=== PATIENT | female | born 1980 | race Caucasian/White ===

== ENCOUNTER → 2016-03-03 | Outpatient (CLI) | payer OTHER ==
--- NOTE | 2016-03-03 18:06 | US ---
Dear Dr. Aguilar, Thank you for sending your patient, Varsha Schneider, to us for an US and consultation to assess fadumo kenneth. As you know, the patient is a 35 y.o. G2, P1001 at 21 weeks and 2 days with an EDC of 07/12/16 b ased on LMP and 8 week US. Her is complicated by AMA. Varsha has an unremarkable past medical and surgical history. She had a term in 2014 that was co mplicated by depression and bladder prolapse treated by pelvic PT. Genetic Screening: She has had reassuring NIPT and AFP results (46XX) this . The patient denies any uterine contractions, vaginal bleeding, or loss of fluid. Today, she is withou t complaints. US FINDINGS: Number of fetuses: 1 Placental location: Anterior, Low-lying 1.9 cm from internal os on transvaginal US Placental Cord Insertion: Central presentation: Cephalic Cervix: 3.3-3.5 cm without evidence of insufficiency on transvaginal US MVP: 4.9 cm The adnexa were evaluated. No pathology was seen. Right ovary: Normal Left ovary: Suboptimal heart rate: 135 bpm Measurements: Biparietal diameter: 50 mm, 21 weeks 1 days Head circumference: 193 mm, 21 weeks 4 days Abdominal circumference: 169 mm, 22 weeks 0 days Femur length: 34 mm, 20 weeks 6 days Humerus length: 35 mm, 22 weeks 0 days Transcerebellar diameter: 22 mm, 20 weeks 6 days Average ultrasound age: 21 weeks 3 days Estimated weight: 421 g weight percentile: 50% ANATOMY Supratentorial brain: Normal Cerebral lateral ventricle: 5 mm Posterior fossa: Normal Cisterna magna: 5 mm Nuchal fold: 4.5 mm Lip: Normal Profile: Normal Alveolar Ridge: Appears intact Spine: -- Cervical: Normal -- Thoracic: Normal -- Lumbar: Normal -- Sacral: Normal Heart: -- 4 Chamber: Normal -- Intraventricular septum: Suboptimal -- Right Outflow Tract: Normal -- Left Outflow Tract: Suboptimal -- 3 Vessel View: Normal -- Aortic Arch: Normal -- Ductal Arch: Normal Diaphragm: Appears intact Stomach: Normal Abdominal Umbilical Cord Insertion: Normal Right kidney: Renal pelvis 5.8 mm with early peripheral calyceal dilation Left kidney: Normal Bladder: Normal Number of cord vessels: 2, Single umbilical artery Upper extremities: -- Right Arm: Normal -- Right Hand: Normal -- Left Arm: Normal -- Left Hand: Normal Lower extremities: -- Right Leg: Normal -- Right Foot: Normal, no club foot -- Left Leg: Normal -- Left Foot: Normal, no club foot IMPRESSION: 1. Anatomy: The fetus measures appropriate for gestational age, measuring a normal weight and percen tile. Visualization of the fetus today reveals no overt structural anomalies. The LVOT and IVS were not well seen today due to position. There is evidence of normal amniotic fluid, and movement was seen during the examination. - US in 4 weeks to reassess cardiac views 2. Single Umbilical Artery: We discussed that this finding can be associated with aneuploidy, r enal and cardiac anomalies, and IUGR. Today, unilateral renal pelvis dilation and calyectasis was mansoor ntified as discussed below. While the LVOT and IVS were not optimally visualized, no gross cardiac an omalies were identified. Other than unilateral renal pelvis dilation, no other markers of aneup loidy were seen. The patient has had reassuring NIPT results this . We discussed the limitat ions of NIPT and the option of diagnostic invasive testing by amniocentesis. We reviewed that invasiv e testing is the only way to definitively exclude aneuploidy. After our discussion, the patient has declined amniocentesis at this time. - Growth US at 28-32 weeks 3. Dilated Right Renal Pelvis: The right renal pelvis is dilated to 5.8 mm with early peripheral jeny ceal dilation. The renal parenchyma, ureter, left kidney, bladder, and amniotic fluid appear normal. We discussed that given the degree of renal pelvis dilation, that this finding is unlikely to resolv e in utero. We discussed that narrowing or obstruction of the right UPJ is the likely cause of this d ilation. We discussed that we will need to follow the fetus with regular US throughout the and that an referral to [facility] U[facility] at [facility] may be warrant ed to discuss management and treatment options. - Follow-up in 4 weeks to reassess R kidney 4. Low-Lying Placenta: The placenta is anterior and the lower edge is 1.9 cm from the internal cervic al os. We discussed that this finding will likely resolve as the progresses and the lower u terine segment becomes more developed. - Follow-up placental position at 30-32 weeks Thank you again for sending this patient to see us today. Approximately 30 minutes of a total visit t billy of 22 minutes were spent with this patient today in direct face to face counseling regarding toda y's US findings and the above recommendations. Please feel free to contact me with any questions at . Kim Augustin MD Maternal- Medicine
--- NOTE | 2016-03-04 09:39 | US ---
Detailed Obstetric Ultrasound Indication: 35-year-old 2, para 1-0-0-1 woman presenting for perinatology consultation and as sessment of anatomy. The estimated gestational age by previous dating is 21 weeks and 2 days kiswahili elding an EDC of July 12, 2016. Comparison: None. Technique: Transabdominal and transvaginal imaging. The study was monitored by Dr. Augustin. Findings: Number: 1. Presentation: Vertex. Placental location: Anterior and low lying. The inferior lip of the placenta resides 1.9 cm superior to the internal cervical os (transvaginally imaged). Placenta cord insertion: Central. Cervix: Closed. 3.3 to 3.5 cm on transvaginal imaging. Maximum vertical pocket: 4.9 cm. heart rate: 135 bpm. Ovaries: Normal right ovary measuring 2.3 x 2.0 x 0.9 cm. Left ovary not visualized. Biometry: Biparietal diameter: 50 mm 21 weeks, 1 day Head circumference: 193 mm 21 weeks, 4 days Abdominal circumference: 169 mm 22 weeks, 0 days Femur length: 34 mm 20 weeks, 6 days Humerus length: 35 mm 22 weeks, 0 days Transcerebellar diameter: 22 mm 20 weeks, 6 days HC/AC: 1.14 (1.06-1.25) FL/BPD: 69% FL/AC: 20% Average ultrasound age: 21 weeks, 3 days EDC based on today's average ultrasound age: July 11, 2016. Estimated weight is 421 grams +/- 61 grams. The estimated weight is at the 50th percentil e based on previous dating. Anatomy Survey: Supratentorial brain: Normal. Posterior fossa: Normal. Spine: Normal. Nuchal fold: Normal, 4.5 mm. Nose, palate, and lips: Normal. Facial profile: Normal. Heart: Four-chamber heart. Suboptimal visualization of the interventricular septum. Cardiac outflow tracts: Suboptimal visualization of the left ventricular outflow tract. Stomach: Normal. Umbilical cord insertion: Normal. Right kidney: Dilated renal pelvis (5.8 mm AP). Left kidney: Normal, no pyelectasis. Bladder: Normal. Number of cord vessels: 2. Upper extremities: Normal. Lower extremities: Normal. No clubbing. Impression: 1. Living davies in vertex presentation. Size concordant with dates. The estimated ge stational age by biometry is 21 weeks and 3 days yielding an EDC of July 11, 2016. The estimated gestational age by previous dating is 21 weeks and 2 days. 2. Suboptimal visualization of the interventricular septum and cardiac outflow tracts. No anomalies detected. 3. Right pelvocaliectasis may be manifestation of reflux uropathy, ureteropelvic junction narrowing, or less likely spectrum aneuploidy. 4. Two-vessel cord. 5. Anterior low-lying placenta. 6. Please refer to Dr. Augustin's perinatology consultation and recommendations for follow up.
== END ==
LOC: FIMAGING 12:09
PROVIDERS: ATTEND Obstetrics & Gynecology
DX: O44.42 Low lying placenta NOS or without hemorrhage, second trimester (principal); O09.522 Supervision of elderly multigravida, second trimester; Z3A.21 21 weeks gestation of pregnancy

== ENCOUNTER → 2016-04-05 | Outpatient (CLI) | payer OTHER ==
--- NOTE | 2016-04-05 16:03 | US ---
April 05, [address] Aguilar, Thank you for allowing us to see your patient regarding AMA, SUA, lowlying placenta and right p robbie dilation. As you know she is a 35 year-old 2, para 1. Her due date is 07/12/16 which i s based on L/8. Her current gestational age based on this dating is 26 weeks 0 days. She was seen pr eviously for anatomy. She has normal NIPT. Number of fetuses: 1 Placental location: anterior no previa presentation: breech Cervix: 3.7 cm MVP: 6.0 cm Measurements: Biparietal diameter: 63 mm 25 weeks, 4 days Head circumference: 236 mm 25 weeks, 5 days Abdominal circumference: 217 mm 26 weeks, 1 days Femur length: 49 mm 25 weeks, 4 days Humerus length: 44 mm 26 weeks, 0 days Transcerebellar diameter: 29 mm 25 weeks, 5 days Average ultrasound age: 25 weeks, 6 days Estimated weight: 858 gm weight percentile: 32 % ANATOMY anatomy was previously assessed. Today the following structures were visualized and appeared n ormal: Supratentorial brain, posterior fossa, cisterna magna 5.6 mm, profile, heart rate 143 b pm The right kidney shows 6.7 mm of renal pelvis dilation the left kidney is normal Single umbilical artery is again seen The four-chamber view shows disproportion with the left smaller than the right side ventr icles and a disproportionately right large right atrium the left ventricular outflow track appears sm all compared to the pulmonary arteries secondary to presentation D arches were unable to be int errogated. Impression: This is a 35 year-old, 2, para 1at 26 weeks, 0 days gestation. 1. SIUP with biometry cw ga of 26 weeks. Nl MVP. 2. Pyelectasis - stable , recheck after 30 weeks 3. New concern for aortic stenosis - I have reviewed the concerns for this and recommendation for Ped s Cards evaluation tomorrow. 4. Given SUA, pyelectasis and a likely cardiac abnormality, I readdressed amniocentesis for karyotype or microarray. They would consider TOP if severe outcome was found and thus they requested that I [facility] (not done at [facility] outpatient secondary to viability ) . Thank you for allowing me to see your patient. Approximately 40 minutes was spent with the patient a nd 40 was spent discussing her issues. Saira Gresham MD Perinatologist Division of Maternal Medicine Department of Obstetrics and Gynecology [facility]
--- NOTE | 2016-04-05 17:18 | US ---
OB Sonogram History: 26 weeks 0 days, KAJAL 07/12/2016, follow-up heart and dilated right renal pelvis Comparison: March 03, 2016 Findings: The cervix is closed measuring 3.7 cm transabdominally. The fetus is in breech presentation . There is a single umbilical artery. The placenta is anterior without previa or premature maturation . The lower margin of the placenta is 2.5 cm above the internal os. Maximum amniotic fluid pocket = 6 cm. The heart is 4 chambered with an intact interventricular septum and normal right and left ventricular outflow tracks. Interestingly however, the left side of the heart is smaller than t hat on the right. heart rate = 143 bpm. The visualized intracranial contents and fa ce look normal. Fluid is identified in the stomach and urinary bladder. The right r enal pelvis measures 6.7 mm. The left renal pelvis is not dilated. BPD = 63 mm = 25 weeks 4 days Head circumference = 236 mm = 25 weeks 5 days Abdominal circumference = 217 mm = 26 weeks 1 day Femur length = 47 mm = 25 weeks 4 days Humeral length = 44 mm = 26 weeks 0 days Cerebellar width = 29 mm = 25 weeks 5 days Cisterna magna = 5.6 mm Estimated weight = 858 g = 32 percentile Average gestational age by ultrasound = 25 weeks 6 days Ultrasound KAJAL July 13, 2016 Impression: 1. Size consistent with dates. Normal interval growth. 2. Stable right pyelectasis. Follow-up is recommended at 30 weeks. 3. The right heart is asymmetrically larger than the left. Coupled with a single umbilical artery, th is raises the possibility for a congenital cardiac abnormality. This report should be read in conjunction with a consultation by Dr. Saira Gresham.
== END ==
LOC: FIMAGING 13:34
PROVIDERS: ATTEND Obstetrics & Gynecology
DX: O09.522 Supervision of elderly multigravida, second trimester (principal); O35.8XX0 Maternal care for other (suspected) fetal abnormality and damage, not applicable or unspecified; Z3A.26 26 weeks gestation of pregnancy

== ENCOUNTER → 2016-04-19 | Outpatient (CLI) | payer OTHER | LOC: FIMAGING 08:00 | PROVIDERS: ATTEND Obstetrics & Gynecology | DX: O09.523 Supervision of elderly multigravida, third trimester (principal); O35.8XX1 Maternal care for other (suspected) fetal abnormality and damage, fetus 1; Z3A.28 28 weeks gestation of pregnancy ==

== ENCOUNTER → 2016-05-05 | Outpatient (CLI) | payer OTHER | LOC: FIMAGING 14:56 | PROVIDERS: ATTEND Obstetrics & Gynecology | DX: O36.5930 Maternal care for other known or suspected poor fetal growth, third trimester, not applicable or unspecified (principal); O35.8XX0 Maternal care for other (suspected) fetal abnormality and damage, not applicable or unspecified; O36.8930 Maternal care for other specified fetal problems, third trimester, not applicable or unspecified; O09.523 Supervision of elderly multigravida, third trimester; Z3A.30 30 weeks gestation of pregnancy ==

== ENCOUNTER → 2016-05-17 | Outpatient (CLI) | payer OTHER | LOC: FIMAGING 10:08 | PROVIDERS: ATTEND Obstetrics & Gynecology | DX: O09.523 Supervision of elderly multigravida, third trimester (principal); O35.1XX0 Maternal care for (suspected) chromosomal abnormality in fetus, not applicable or unspecified; Z3A.30 30 weeks gestation of pregnancy ==

== ENCOUNTER → 2016-05-31 | Outpatient (CLI) | payer OTHER | LOC: FIMAGING 09:57 | PROVIDERS: ATTEND Obstetrics & Gynecology | DX: O09.523 Supervision of elderly multigravida, third trimester (principal); O35.8XX0 Maternal care for other (suspected) fetal abnormality and damage, not applicable or unspecified; Z3A.34 34 weeks gestation of pregnancy ==

== ENCOUNTER → 2016-06-07 | Outpatient (CLI) | payer OTHER | LOC: FIMAGING 12:29 | PROVIDERS: ATTEND Obstetrics & Gynecology | DX: O35.8XX0 Maternal care for other (suspected) fetal abnormality and damage, not applicable or unspecified (principal); O09.523 Supervision of elderly multigravida, third trimester; Z3A.35 35 weeks gestation of pregnancy ==

== ENCOUNTER → 2016-06-14 | Outpatient (CLI) | payer OTHER | LOC: FIMAGING 13:29 | PROVIDERS: ATTEND Obstetrics & Gynecology | DX: O09.523 Supervision of elderly multigravida, third trimester (principal); O35.1XX0 Maternal care for (suspected) chromosomal abnormality in fetus, not applicable or unspecified; Q25.1 Coarctation of aorta; Q23.4 Hypoplastic left heart syndrome; Q27.0 Congenital absence and hypoplasia of umbilical artery; Z3A.36 36 weeks gestation of pregnancy ==

== ENCOUNTER → 2016-06-28 | Outpatient (CLI) | payer OTHER | LOC: FIMAGING 14:40 | PROVIDERS: ATTEND Obstetrics & Gynecology | DX: O09.523 Supervision of elderly multigravida, third trimester (principal); Z3A.37 37 weeks gestation of pregnancy; O36.8930 Maternal care for other specified fetal problems, third trimester, not applicable or unspecified ==